=== PATIENT | male | born 2000 | race Two or more races ===

== ENCOUNTER 2024-12-05 17:23 | Emergency (ER) | payer OTHER ==
[~2024-12-05] VITALS: Ht 172.7 cm; Wt 107.5 kg
[2024-12-05] MEDS ORDERED: DOLOGESIC-DF 51 EACH PO (17:52)
[2024-12-05] MEDS ORDERED: KETOROLAC TROMETHAMINE 30 MG VIAL IM STA (19:16)
[2024-12-05] MEDS ORDERED: KETOROLAC TROMETHAMINE 30 MG VIAL ONE (19:38)
[2024-12-05 19:48] LABS: HEMATOCRIT 46.4 % (39.0-48.0); HEMOGLOBIN 16.3 g/dL (13-16.00); MEAN CELL VOLUME 85.3 fL (80.0-100.00); MEAN CORPUSCULAR HEMOGLOBIN 29.9 pg (27.00-32.0); MEAN CORPUSCULAR HGB CONC 35.1 g/dl (32.0-36.0); RED BLOOD COUNT 5.44 M/uL (4.00-6.00)
[2024-12-05 19:56] LABS: CALCIUM 9.4 mg/dL (8.5-10.1); CREATININE SERUM 0.82 mg/dL (0.70-1.30); GFR 117.48; POTASSIUM 3.57 mEq/L (3.5-5.1)
[2024-12-05 20:09] LABS: PH,URINE 6.5 (5.0-8.0); URINE APPEARANCE Clear; URINE BILIRRUBIN Small (NEGATIVE); URINE BLOOD Negative; URINE COLOR Dark Yellow; URINE GLUCOSE Negative (NEGATIVE); URINE LEUKOCYTE Trace; URINE NITRATE Negative
[2024-12-05 20:13] LABS: URINE BACTERIA 47.7 uL (0.0-1933); URINE EPITHELIAL CELLS 6.3 uL (0.0-38.8); URINE RBC 6.9 uL (0.0-20.8); URINE WBC 6.9 uL (0.0-23.2)
[2024-12-05 20:26] LABS: PLATELET COUNT 109 K/uL (150-450)
[2024-12-05 21:15] LABS: URINE KETONE >=160 (NEGATIVE); URINE PROTEIN 100 (NEGATIVE)
== END 2024-12-05 21:53 | disposition home or self-care (01) ==
LOC: ER 17:25
PROVIDERS: General Practice
DX: R07.81 Pleurodynia (principal)